=== PATIENT | female | born 1945 | race American Indian/Alaskan Native ===

== ENCOUNTER 2019-03-10 21:28 | Emergency (ER) | payer MEDICARE ==
--- NOTE | 2019-03-10 22:06 | XRay Report ---
CHEST 1 VIEW INDICATION / CLINICAL INFORMATION: MAIN: Chest Pain; Per EMS, pt c/o CP at [facility]. Tachypenic at triage. No diaphoresis. . COMPARISON: None available. FINDINGS: SUPPORT DEVICES: None. HEART / MEDIASTINUM: No significant abnormality. LUNGS / PLEURA: No significant pulmonary or pleural abnormality. No pneumothorax. ADDITIONAL FINDINGS: No significant additional findings. IMPRESSION: 1. No acute findings. Signer Name: Erik Woods MD Signed: 03/10/2019 10:02 PM Workstation Name: [id number]
[2019-03-10 22:08] LABS: Basophils # (Auto) 0.1 K/mm3 (0.0-0.1); Basophils % (Auto) 0.7 % (0.0-1.8); Eosinophils # (Auto) 0.1 K/mm3 (0.0-0.4); Eosinophils % (Auto) 0.9 % (0.0-4.3); Hematocrit 38.4 % (30.3-42.9); Hemoglobin 12.5 gm/dl (10.1-14.3); Lymphocytes # (Auto) 1.7 K/mm3 (1.2-5.4); Lymphocytes % (Auto) 14.9 % (13.4-35.0); Mean Corpuscular HGB Conc 33 % (30-34); Mean Corpuscular Volume 78 fl (79-97); Monocytes # (Auto) 0.5 K/mm3 (0.0-0.8); Monocytes % (Auto) 4.4 % (0.0-7.3); Platelet Count 250 K/mm3 (140-440); Red Blood Count 4.95 M/mm3 (3.65-5.03); Red Cell Distribution Width 17.2 % (13.2-15.2)
[2019-03-10] MEDS ORDERED: ACETAMINOPHEN 325 MG TAB ONE (22:13)
[2019-03-10] MEDS ORDERED: ACETAMINOPHEN 500 MG TAB PO ONE (22:13)
--- NOTE | 2019-03-10 22:22 | Emergency Department Report ---
ED Chest Pain HPI - General Chief Complaint: Chest Pain Stated Complaint: CHEST PAIN Time Seen by Provider: 03/10/19 22:03 Source: family, EMS Mode of arrival: Ambulatory Limitations: Physical Limitation - History of Present Illness Initial Comments: Mrs. Mcneil is a 73 yo female with hx of CVA with left residual deficit, UTI, constipation, PVD, osteoporosis, dementia, HTN, dyslipdemia, left BKA who presents with chest pain. Nonspecific chest pain which lasted for 1-2 hours at rest. She is pain free now. She is unable to describe the chest pain. Multiple relatives are bedside. Daughter gave hx. Mrs. Mcneil moved from [place], [place] in January 2018 to [facility]. Has been seen at [facility] for stroke symptoms and UTI over the past year. Otherwise has been doing well. Has had chest pain with normal evaluations according to daughter without hx of PE or CAD. Daughter has noticed that she has been anxious. She has had a lot of gas and indigestion. Has been placed on antacid type medication one week ago. She currently resides at [facility]. Complaint: chest pain -: Gradual, This afternoon, This evening Onset: during rest Pain Location: substernal Pain Radiation: none Severity: mild Severity scale (0 -10): 5 Consistency: now resolved Improves With: nothing Worsens With: exertion - Related Data Allergies Allergy/AdvReac Type Severity Reaction Status Date / Time No Known Allergies Allergy Verified 03/10/19 23:18 Heart Score - HEART Score History: Slightly suspicious EKG: Non-specific Age: > 65 Risk factors: > 3 risk factors or hx of atherosclerotic disease Troponin: < normal limit HEART Score: 5 ED Review of Systems ROS: Stated complaint: CHEST PAIN Other details as noted in HPI Comment: All other systems reviewed and negative Constitutional: denies: fever, malaise Respiratory: denies: cough, shortness of breath Cardiovascular: chest pain Gastrointestinal: denies: abdominal pain, nausea, vomiting ED Past Medical Hx - Past Medical History Previous Medical History?: Yes Hx Hypertension: Yes Hx CVA: Yes (L side deficit) Additional medical history: UTI - Surgical History Past Surgical History?: Yes Additional Surgical History: Left AKA - Family History Family history: hypertension - Social History Smoking Status: Never Smoker Substance Use Type: None ED Physical Exam - General Limitations: Physical Limitation General appearance: alert, in no apparent distress, other (appears comfortable) - Head Head exam: Present: atraumatic, normocephalic - Eye Eye exam: Present: normal appearance. Absent: scleral icterus, conjunctival injection - ENT ENT exam: Present: mucous membranes moist - Neck Neck exam: Present: normal inspection, full ROM - Respiratory Respiratory exam: Present: normal lung sounds bilaterally. Absent: respiratory distress, wheezes, rales, rhonchi - Cardiovascular Cardiovascular Exam: Present: regular rate, normal rhythm, normal heart sounds. Absent: systolic murmur, diastolic murmur, rubs, gallop - GI/Abdominal GI/Abdominal exam: Present: soft, normal bowel sounds. Absent: distended, tenderness, guarding, rebound - Extremities Exam Extremities exam: Present: other (contracted left upper extremity, left b [id number] amputation) - Neurological Exam Neurological exam: Present: alert, oriented X3 - Psychiatric Psychiatric exam: Present: normal mood, flat affect - Skin Skin exam: Present: warm, dry, intact, normal color. Absent: rash ED Course Vital Signs 03/10/19 03/10/19 03/10/19 21:32 21:48 21:53 Temperature 98.7 F Pulse Rate 75 Respiratory 18 18 Rate Blood Pressure 168/80 Blood Pressure 168/80 [Right] O2 Sat by Pulse 100 98 96 Oximetry 03/10/19 03/10/19 03/10/19 22:00 22:30 23:00 Temperature Pulse Rate 59 L 57 L 56 L Respiratory 19 25 H 12 Rate Blood Pressure 157/73 144/71 150/67 Blood Pressure [Right] O2 Sat by Pulse 100 100 99 Oximetry ED Medical Decision Making - Lab Data Result diagrams: 03/10/19 21:56 03/10/19 21:56 Laboratory Results - last 24 hr 03/10/19 03/10/19 03/10/19 21:56 21:56 22:33 WBC 11.5 H RBC 4.95 Hgb 12.5 Hct 38.4 MCV 78 L MCH 25 L MCHC 33 RDW 17.2 H Plt Count 250 Lymph % (Auto) 14.9 Parker % (Auto) 4.4 Eos % (Auto) 0.9 Baso % (Auto) 0.7 Lymph # 1.7 Parker # 0.5 Eos # 0.1 Baso # 0.1 Seg Neutrophils % 79.1 H Seg Neutrophils # 9.1 H Sodium 141 Potassium 3.5 L Chloride 102.9 Carbon Dioxide 21 L Anion Gap 21 BUN 12 Creatinine 0.8 Estimated GFR > 60 BUN/Creatinine Ratio 15 Glucose 108 H Calcium 10.1 Troponin T < 0.010 Urine Bilirubin Neg Urine RBC (Auto) 9.0 U Epithel Cells (Auto) 3.0 - EKG Data EKG shows normal: sinus rhythm, axis, intervals, QRS complexes, ST-T waves Rate: normal - EKG Data Interpretation: normal EKG - Radiology Data Radiology results: report reviewed Portal chest x-ray no acute findings - Medical Decision Making Ms. Mcneil presents with transient chest pain. After workup in physical exam performed in the emergency department I do not detect acute coronary yndrome, pulmonary embolism, arrhythmia or pneumonia. She was ruled out for IA with troponin 2. Urinalysis negative for infection family and patient given reassurance. Transfer back to the snf facility [facility]. Labs notable for mild leukocytosis. Critical care attestation.: If time is entered above; I have spent that time in minutes in the direct care of this critically ill patient, excluding procedure time. ED Disposition Clinical Impression: Chest pain Disposition: DC-01 TO HOME OR SELFCARE Is pt being admited?: No Does the pt Need Aspirin: No Condition: Stable Instructions: Chest Pain (ED)
[2019-03-10 22:29] LABS: BUN/Creatinine Ratio 15; Blood Urea Nitrogen 12 mg/dL (7-17); Calcium 10.1 mg/dL (8.4-10.2); Hemolysis Index 6
[2019-03-10 23:04] LABS: Bilirubin,Urine NEG (Negative); Blood,Urine SM (Negative); Color,Urine Straw (Yellow); Mucus,Urine FEW /HPF; Protein,Urine <15 mg/dL mg/dL (Negative); Urobilinogen,Urine < 2.0 mg/dL (<2.0)
[2019-03-10 23:13] VITALS: BP 150/67
== END 2019-03-11 01:40 | disposition home or self-care (01) ==
LOC: ED 21:28
DX: R07.9 Chest pain, unspecified (principal); I10 Essential (primary) hypertension; M81.0 Age-related osteoporosis without current pathological fracture; I73.9 Peripheral vascular disease, unspecified; E78.5 Hyperlipidemia, unspecified; Z86.73 Personal history of transient ischemic attack (TIA), and cerebral infarction without residual deficits; Z96.652 Presence of left artificial knee joint
CPT/HCPCS: 36415; 71045; 80048; 81001; 84484; 85025; 93005; 93010